=== PATIENT | female | born 1940 | race Caucasian/White ===

== ENCOUNTER → 2018-09-09 | Day surgery (SDC) | payer BC, MEDICARE ==
[2018-08-26 13:06] LABS: BASOPHILS # (AUTO) 0.1 (0.0-0.1); BASOPHILS % 0.6 % (0.0-1.0); EOSINOPHILS # (AUTO) 0.7 (0.0-0.4); EOSINOPHILS % 8.4 % (0.0-6.0); HEMATOCRIT 36.6 % (34.2-44.1); HEMOGLOBIN 11.8 g/dL (12.0-16.0); LYMPHOCYTES % 25.1 % (18.0-39.1); MEAN CORPUSCULAR HEMOGLOBIN 29.7 pg (28-32); MEAN CORPUSCULAR HGB CONC 32.2 g/dL (31-35); MEAN CORPUSCULAR VOLUME 92.2 fL (81-99); MONOCYTES # (AUTO) 0.9 (0.2-0.8); MONOCYTES % 11.6 % (4.4-11.3); NEUTROPHILS # (AUTO) 4.2 (2.1-6.9); NEUTROPHILS % 53.9 % (38.7-80.0); PLATELET COUNT 146 x10e3/uL (140-360); RED BLOOD COUNT 3.97 x10e6/uL (3.6-5.1); RED CELL DISTRIBUTION WIDTH 14.2 % (11.7-14.4)
[~2018-09-09] MED LIST: ALBUTEROL0.63 MG/3 INH; ASPIR 8181 MG PO; CENTRUM SILVER1 EAC1 PO; CLARITIN-D 241 EACH PO; CLARITIN10 MG PO; FUROSEMIDE40 MG PO; HYDROCHLOROTHIA25 MG PO; METOPROLOL TART50 MG PO; POTASSIUM CHLO10 ME1 PO; PROPOFOL IV EMULSION 10 MG/ML 20 ML VIAL ONE; SPIRIVA18 MCG INH; SYMBICORT 16010.2 GM INH
--- OUTSIDE RECORDS SUMMARY | 2018-09-09 05:41 | XMS REPORT | Clinical Summary ---
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 Last Filed Vital Signs Not on file Plan of Treatment Not on file Results Not on fileafter 09/08/2017 Insurance Payer Benefit Subscriber ID Type Phone Address Plan / Group BLUE CROSS/BLUE SHIELD - BCBS xxxxxxxxxxxx MEDICARE MGD CARE MEDICARE ADVANTAGE
--- OUTSIDE RECORDS SUMMARY | 2018-09-09 05:42 | XMS REPORT ---
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 Allergies, Adverse Reactions, Alerts Allergy Name Allergy Type Status Severity Reaction(s) Onset Date Inactive Date Treating Clinician Comments sulfamethoxazole DA Active U 2017-07-30 00:00:00 trimethoprim DA Active U 2017-07-30 00:00:00 Medications This patient has no known medications. Results Test Description Test Time Test Comments Text Results Atomic Results Result Comments - XR CHEST 2 V 2018-07-14 11:15:00 FAX: Cortez Marquez MD [phone] [place]: St: [facility] FAX: Lena Savage MD [phone] Name: DO JEFFERSON [facility] : 1940 Age/S: 77/F [address] [place] [address] Blvd Unit #: [id number] Loc: [place] [address] Phys: Lena Burgos MD Acct: [id number] Dis Date: Status: REG CLI PHONE #: [phone] Exam Date: 07/14/2018 1109 FAX #: [phone] Reason: J20.8, ACUTE BRONCHITIS DUE TO OTHER SPECIFIED EXAMS: CPT CODE: [id number] XR CHEST 2 V 35966 2 view chest x-ray performed July 14, 2018 1057 hours. COMPARISON: July 30, 2017. CLINICAL HISTORY: Acute bronchitis. DISCUSSION: 2 views/ films of the chest are submitted. Lungs are clear bilaterally. Size is normal. Atherosclerotic vascular calcifications are present.. Osseous structures are within normal limits. IMPRESSION: No acute cardiopulmonary findings. at 1115 Reported and signed by: Maggie Bruno M.D. CC: Cortez Curran MD; Lena Burgos MD Technologist: RT Vickie(Merlyn) Trnscrd Date/Time/By: 07/14/2018 (1117) : By: MagaliG Orig Print D/T: S: 07/14/2018 (7218) PAGE 1 Signed Report
[2018-09-09 08:45] VITALS: BP 93/59
== END | disposition home or self-care (01) ==
LOC: OR 05:34
PROVIDERS: ATTEND Internal Medicine Gastroenterology
DX: K63.5 Polyp of colon (principal); Z85.038 Personal history of other malignant neoplasm of large intestine; Z98.0 Intestinal bypass and anastomosis status; K64.9 Unspecified hemorrhoids; Z71.3 Dietary counseling and surveillance; I10 Essential (primary) hypertension; E66.9 Obesity, unspecified; J44.9 Chronic obstructive pulmonary disease, unspecified; Z88.1 Allergy status to other antibiotic agents; Z01.810 Encounter for preprocedural cardiovascular examination; Z01.812 Encounter for preprocedural laboratory examination; Z79.82 Long term (current) use of aspirin; Z68.34 Body mass index [BMI] 34.0-34.9, adult
CPT/HCPCS: 36415; 45378; 85025; 93005; J2704

== ENCOUNTER 2021-04-05 23:05 | Inpatient (IN) | payer MEDICARE ==
[~2021-04-05] VITALS: Ht 167.6 cm; Wt 97.5 kg
[~2021-04-05 23:05] MED LIST changes: -PROPOFOL IV EMULSION 10 MG/ML 20 ML VIAL ONE
[2021-04-05] MEDS ORDERED: ALBUTEROL/IPRATROPIUM 3 ML NEB ONE (23:29)
[2021-04-05] MEDS ORDERED: METHYLPREDNISOLONE SOD SUCC 125 MG/2ML VIAL ONE (23:36)
[2021-04-05] MEDS ORDERED: METHYLPREDNISOLONE SOD SUCC 125 MG/2ML VIAL IV ONE (23:45)
[2021-04-06] VITALS (8 sets, daily range): BP systolic 128–163; BP diastolic 58–97
[2021-04-06] MEDS ORDERED: ALBUTEROL SULF 0.083% NEB SOLN 3 ML NEB ONE (00:04)
[2021-04-06] MEDS ORDERED: ALBUTEROL SULF 0.083% NEB SOLN 3 ML NEB NEB STA ×2 (01:09)
[2021-04-06] MEDS ORDERED: SODIUM CHLORIDE FLUSH 10 ML SYR INJ PRN (01:15)
[2021-04-06] MEDS ORDERED: SODIUM CHLORIDE 0.9% 500ML 500 ML IV ONE (01:15)
[2021-04-06] MEDS ORDERED: ASPIRIN 81 MG CHEW TAB PO ONE (01:15)
[2021-04-06] MEDS ORDERED: ALBUTEROL/IPRATROPIUM 3 ML NEB NEB ONE ×2 (01:15)
[2021-04-06] MEDS: CEFTRIAXONE 2 GM in SODIUM CHLORIDE 0.9% 100 ML IV SCH ×2 (01:50→09:00)
[2021-04-06] MEDS ORDERED: SODIUM CHLORIDE 0.9% 100 ML ONE (01:51)
[2021-04-06] MEDS ORDERED: SODIUM CHLORIDE 0.9% 250ML 250 ML ONE ×2 (01:51→09:06)
[2021-04-06] MEDS ORDERED: SODIUM CHLORIDE 0.9% 500ML 500 ML ONE (01:51)
[2021-04-06] MEDS ORDERED: CEFTRIAXONE 1 GM VIAL ONE (01:52)
[2021-04-06] MEDS: ALBUTEROL SULF 0.083% NEB SOLN 3 ML NEB NEB SCH ×7 (04:00→22:00)
[2021-04-06] MEDS ORDERED: METHYLPREDNISOLONE SOD SUCC 125 MG/2ML VIAL IV SCH ×3 (06:00→21:00)
[2021-04-06] MEDS: IPRATROPIUM BROMIDE 0.02% 2.5 ML NEB NEB SCH ×3 (07:30→18:00)
[2021-04-06] MEDS ORDERED: HYDRALAZINE HCL 20 MG/ML VIAL IV PRN (09:30)
[2021-04-06] MEDS ORDERED: BENZONATATE 100 MG CAP PO PRN (09:30)
[2021-04-06] MEDS: GUAIFENESIN 600MG/DEXTROMETHORPHAN 30MG TABSR PO PRN (09:41)
[2021-04-06] MEDS: ALBUTEROL/IPRATROPIUM 3 ML NEB NEB SCH ×3 (11:20→20:20)
[2021-04-06 17:24] LABS: CREATINE KINASE 54 IU/L (29-168)
[2021-04-06] MEDS: METHYLPREDNISOLONE SOD SUCC 125 MG/2ML VIAL IV SCH (21:05)
[2021-04-07] MEDS: ALBUTEROL/IPRATROPIUM 3 ML NEB NEB SCH ×7 (00:55→22:29)
[2021-04-07] MEDS: ALBUTEROL SULF 0.083% NEB SOLN 3 ML NEB NEB SCH ×7 (01:00→22:00)
[2021-04-07] MEDS: IPRATROPIUM BROMIDE 0.02% 2.5 ML NEB NEB SCH ×4 (04:50→18:00)
[2021-04-07 06:41] VITALS: BP 125/103
[2021-04-07 07:51] VITALS: BP 153/81
[2021-04-07 08:07] LABS: BASOPHILS % 0.1 % (0.0-1.0); HEMATOCRIT 41.7 % (34.2-44.1); HEMOGLOBIN 13.1 g/dL (12.0-16.0); MEAN CORPUSCULAR HEMOGLOBIN 30.2 pg (28-32); MEAN CORPUSCULAR HGB CONC 31.4 g/dL (31-35); MEAN CORPUSCULAR VOLUME 96.1 fL (81-99); MONOCYTES # (AUTO) 0.9 (0.2-0.8); MONOCYTES % 6.6 % (4.4-11.3); NEUTROPHILS # (AUTO) 11.8 (2.1-6.9); NEUTROPHILS % 85.9 % (38.7-80.0); PLATELET COUNT 172 x10e3/uL (140-360); RED BLOOD COUNT 4.34 x10e6/uL (3.6-5.1); RED CELL DISTRIBUTION WIDTH 14.4 % (11.7-14.4)
[2021-04-07 08:27] LABS: ANION GAP 11.8 mmol/L (8-16); CALCIUM 9.7 mg/dL (8.4-10.2); CREATININE, SERUM 1.06 mg/dL (0.57-1.11); POTASSIUM 3.8 mmol/L (3.5-5.1)
[2021-04-07] MEDS: GUAIFENESIN 600MG/DEXTROMETHORPHAN 30MG TABSR PO PRN (08:30)
[2021-04-07] MEDS ORDERED: SODIUM CHLORIDE 0.9% 500ML 500 ML IV ONE (08:45)
[2021-04-07] MEDS ORDERED: METOPROLOL TARTRATE INJ 1 MG/ML VIAL IV ONE (08:45)
[2021-04-07 08:55] VITALS: BP 153/81
[2021-04-07 08:56] LABS: CREATINE KINASE MB 2.6 ng/mL (0-5.0)
[2021-04-07] MEDS: METHYLPREDNISOLONE SOD SUCC 125 MG/2ML VIAL IV SCH ×2 (09:00→20:41)
[2021-04-07] MEDS: CEFTRIAXONE 2 GM in SODIUM CHLORIDE 0.9% 100 ML IV SCH (09:00)
[2021-04-07] MEDS ORDERED: SODIUM CHLORIDE 0.9% 500ML 500 ML IV SCH (09:45)
[2021-04-07] MEDS: HYDROCHLOROTHIAZIDE 25 MG TAB PO SCH (10:15)
[2021-04-07] MEDS ORDERED: CHLORASEPTIC SPRAY 177 ML BTL MM PRN (10:15)
[2021-04-07] MEDS: ASPIRIN 81 MG ENTERIC COATED PO SCH (11:00)
[2021-04-07 11:53] VITALS: BP 151/85
[2021-04-07 15:50] VITALS: BP 131/79
[2021-04-07 20:00] VITALS: BP 159/84
[2021-04-07] MEDS ORDERED: METOPROLOL TARTRATE 25 MG TAB PO SCH (21:00)
[2021-04-08] VITALS (7 sets, daily range): BP systolic 133–167; BP diastolic 68–91
[2021-04-08] MEDS: ALBUTEROL/IPRATROPIUM 3 ML NEB NEB SCH ×5 (00:39→14:15)
[2021-04-08] MEDS: ALBUTEROL SULF 0.083% NEB SOLN 3 ML NEB NEB SCH ×3 (01:00→07:00)
[2021-04-08 04:43] LABS: BASOPHILS % 0.1 % (0.0-1.0); HEMATOCRIT 40.2 % (34.2-44.1); HEMOGLOBIN 12.4 g/dL (12.0-16.0); LYMPHOCYTES # (AUTO) 0.7 (1.0-3.2); LYMPHOCYTES % 7.3 % (18.0-39.1); MEAN CORPUSCULAR HEMOGLOBIN 30.5 pg (28-32); MEAN CORPUSCULAR HGB CONC 30.8 g/dL (31-35); MEAN CORPUSCULAR VOLUME 98.8 fL (81-99); MONOCYTES # (AUTO) 0.3 (0.2-0.8); NEUTROPHILS # (AUTO) 9.1 (2.1-6.9); NEUTROPHILS % 89.2 % (38.7-80.0); PLATELET COUNT 131 x10e3/uL (140-360); RED BLOOD COUNT 4.07 x10e6/uL (3.6-5.1); RED CELL DISTRIBUTION WIDTH 14.6 % (11.7-14.4)
[2021-04-08 05:03] LABS: ANION GAP 9.4 mmol/L (8-16); CALCIUM 9.4 mg/dL (8.4-10.2); CREATININE, SERUM 1.03 mg/dL (0.57-1.11); POTASSIUM 4.4 mmol/L (3.5-5.1)
[2021-04-08] MEDS: IPRATROPIUM BROMIDE 0.02% 2.5 ML NEB NEB SCH ×2 (06:00)
[2021-04-08] MEDS: CEFTRIAXONE 2 GM in SODIUM CHLORIDE 0.9% 100 ML IV SCH (08:56)
[2021-04-08] MEDS: ASPIRIN 81 MG ENTERIC COATED PO SCH (08:56)
[2021-04-08] MEDS: METHYLPREDNISOLONE SOD SUCC 125 MG/2ML VIAL IV SCH (08:56)
[2021-04-08] MEDS: HYDROCHLOROTHIAZIDE 25 MG TAB PO SCH (08:57)
[2021-04-08] MEDS ORDERED: ZITHROMAX500 MG PO (17:36)
[2021-04-08] MEDS ORDERED: PREDNISONE20 MG PO (17:38)
[2021-04-09] MEDS ORDERED: AZITHROMYCIN 250 MG TAB PO SCH (06:00)
== END 2021-04-08 18:20 | disposition home or self-care (01) | DRG 190 ==
LOC: FSED 23:10 → ERHOLD 04-06 01:02 → MED/SURG2 04-06 03:22
PROVIDERS: ADMIT Internal Medicine; ATTEND Internal Medicine
DX: J44.1 Chronic obstructive pulmonary disease with (acute) exacerbation (principal); J18.9 Pneumonia, unspecified organism; I10 Essential (primary) hypertension; J44.0 Chronic obstructive pulmonary disease with (acute) lower respiratory infection; E78.5 Hyperlipidemia, unspecified; I73.9 Peripheral vascular disease, unspecified; Z20.822 Contact with and (suspected) exposure to COVID-19; I48.0 Paroxysmal atrial fibrillation; I89.0 Lymphedema, not elsewhere classified; Z88.1 Allergy status to other antibiotic agents
CPT/HCPCS: 36415; 71045; 80048; 80053; 80061; 81003; 82550; 82553; 83880; 84484; 85025; 93005; 94640; 94799; 96374; 99284; J0456; J0696; J2930; J7040; J7050; U0002

== ENCOUNTER 2021-06-27 20:28 | Inpatient (IN) | payer MEDICARE ==
[~2021-06-27] VITALS: Ht 167.6 cm; Wt 97.5 kg
[~2021-06-27 20:28] MED LIST changes: +PREDNISONE20 MG PO; +ZITHROMAX500 MG PO
[2021-06-27] MEDS ORDERED: FUROSEMIDE INJ 10 MG/ML 4 ML VIAL IV STA (20:35)
[2021-06-27] MEDS ORDERED: ALBUTEROL/IPRATROPIUM 3 ML NEB NEB STA (20:49)
[2021-06-27 21:00] LABS: BASOPHILS # (AUTO) 0.1 (0.0-0.1); BASOPHILS % 0.8 % (0.0-1.0); EOSINOPHILS # (AUTO) 2.2 (0.0-0.4); EOSINOPHILS % 21.3 % (0.0-6.0); HEMATOCRIT 44.8 % (34.2-44.1); HEMOGLOBIN 14.4 g/dL (12.0-16.0); LYMPHOCYTES # (AUTO) 2.6 (1.0-3.2); LYMPHOCYTES % 24.6 % (18.0-39.1); MEAN CORPUSCULAR HEMOGLOBIN 30.6 pg (28-32); MEAN CORPUSCULAR HGB CONC 32.1 g/dL (31-35); MEAN CORPUSCULAR VOLUME 95.3 fL (81-99); MONOCYTES # (AUTO) 1.1 (0.2-0.8); MONOCYTES % 10.7 % (4.4-11.3); NEUTROPHILS # (AUTO) 4.4 (2.1-6.9); NEUTROPHILS % 42.4 % (38.7-80.0); PLATELET COUNT 169 x10e3/uL (140-360)
[2021-06-27 21:07] LABS: CLARITY,URINE HAZY (CLEAR); COLOR,URINE YELLOW (YELLOW); KETONES,URINE NEGATIVE (NEGATIVE); LEUKOCYTE ESTERASE ,URINE NEGATIVE (NEGATIVE); NITRITE,URINE NEGATIVE (NEGATIVE); PROTEIN,URINE DIPSTICK 1+ (NEGATIVE); URINE UROBILINOGEN 0.2 mg/dL (0.2 - 1)
[2021-06-27 21:12] LABS: RBC,URINE 0-5 /HPF (0-5)
[2021-06-27] MEDS ORDERED: TRELEGY ELLIPT1 EACH INH (21:14)
[2021-06-27 21:16] LABS: ALBUMIN 3.7 g/dL (3.5-5.0); ALBUMIN/GLOBULIN RATIO 0.9 (0.8-2.0); ANION GAP 13.3 mmol/L (8-16); CALCIUM 9.1 mg/dL (8.4-10.2); CREATININE, SERUM 0.87 mg/dL (0.57-1.11); POTASSIUM 4.3 mmol/L (3.5-5.1)
[2021-06-27 21:23] LABS: B-TYPE NATRIURETIC PEPTIDE2 99.8 pg/mL (0-100); CREATINE KINASE MB 1.8 ng/mL (0-5.0)
[2021-06-27] MEDS ORDERED: ONDANSETRON HCL INJ 2MG/ML 2ML 2 MG/ML VIAL IV STA (21:32)
[2021-06-27] MEDS ORDERED: SODIUM CHLORIDE FLUSH 10 ML SYR INJ PRN (22:00)
[2021-06-27] MEDS ORDERED: ASPIRIN 81 MG CHEW TAB PO ONE (22:00)
[2021-06-27] MEDS ORDERED: ALBUTEROL/IPRATROPIUM 3 ML NEB NEB PRN (22:00)
[2021-06-27 23:00] VITALS: BP 162/73
[2021-06-28] VITALS (8 sets, daily range): BP systolic 110–162; BP diastolic 69–107
[2021-06-28] MEDS: METHYLPREDNISOLONE SOD SUCC 40 MG/ML VIAL 1ML IV SCH ×4 (00:18→21:05)
[2021-06-28 05:00] LABS: BASOPHILS % 0.2 % (0.0-1.0); EOSINOPHILS % 0.4 % (0.0-6.0); HEMATOCRIT 42.9 % (34.2-44.1); HEMOGLOBIN 13.9 g/dL (12.0-16.0); LYMPHOCYTES # (AUTO) 0.8 (1.0-3.2); LYMPHOCYTES % 16.6 % (18.0-39.1); MEAN CORPUSCULAR HEMOGLOBIN 30.4 pg (28-32); MEAN CORPUSCULAR HGB CONC 32.4 g/dL (31-35); MEAN CORPUSCULAR VOLUME 93.9 fL (81-99); MONOCYTES # (AUTO) 0.1 (0.2-0.8); MONOCYTES % 1.3 % (4.4-11.3); NEUTROPHILS # (AUTO) 3.8 (2.1-6.9); NEUTROPHILS % 81.3 % (38.7-80.0); PLATELET COUNT 156 x10e3/uL (140-360); RED BLOOD COUNT 4.57 x10e6/uL (3.6-5.1); RED CELL DISTRIBUTION WIDTH 13.6 % (11.7-14.4)
[2021-06-28 05:16] LABS: ALBUMIN 3.3 g/dL (3.5-5.0); ALBUMIN/GLOBULIN RATIO 0.8 (0.8-2.0); ANION GAP 13.7 mmol/L (8-16); CALCIUM 9.1 mg/dL (8.4-10.2); CREATININE, SERUM 0.97 mg/dL (0.57-1.11); POTASSIUM 3.7 mmol/L (3.5-5.1)
[2021-06-28 06:06] LABS: CREATINE KINASE MB 3.4 ng/mL (0-5.0)
[2021-06-28] MEDS: FUROSEMIDE INJ 10 MG/ML 4 ML VIAL IV SCH ×2 (08:59→21:05)
[2021-06-28] MEDS ORDERED: ALBUTEROL SULF 0.083% NEB SOLN 3 ML NEB INH SCH (12:30)
[2021-06-28 15:20] LABS: CREATINE KINASE MB 2.7 ng/mL (0-5.0)
[2021-06-28] MEDS ORDERED: METOPROLOL TARTRATE 50 MG TAB PO SCH (21:00)
[2021-06-28] MEDS ORDERED: ASPIRIN 81 MG CHEW TAB PO SCH (21:00)
[2021-06-29] VITALS (9 sets, daily range): BP systolic 125–164; BP diastolic 50–98
[2021-06-29 06:39] LABS: BASOPHILS % 0.1 % (0.0-1.0); HEMATOCRIT 42.1 % (34.2-44.1); HEMOGLOBIN 13.9 g/dL (12.0-16.0); LYMPHOCYTES % 8.4 % (18.0-39.1); MEAN CORPUSCULAR HEMOGLOBIN 30.8 pg (28-32); MEAN CORPUSCULAR VOLUME 93.3 fL (81-99); MONOCYTES # (AUTO) 0.9 (0.2-0.8); MONOCYTES % 7.4 % (4.4-11.3); NEUTROPHILS # (AUTO) 10.4 (2.1-6.9); NEUTROPHILS % 83.4 % (38.7-80.0); PLATELET COUNT 147 x10e3/uL (140-360); RED BLOOD COUNT 4.51 x10e6/uL (3.6-5.1); RED CELL DISTRIBUTION WIDTH 13.9 % (11.7-14.4)
[2021-06-29 06:59] LABS: ALBUMIN/GLOBULIN RATIO 0.8 (0.8-2.0); ANION GAP 11.6 mmol/L (8-16); CALCIUM 9.2 mg/dL (8.4-10.2); CREATININE, SERUM 1.23 mg/dL (0.57-1.11); POTASSIUM 4.6 mmol/L (3.5-5.1)
[2021-06-29 07:34] LABS: CREATINE KINASE MB 2.1 ng/mL (0-5.0)
[2021-06-29] MEDS ORDERED: NON-FORMULARY MEDICATION (Fluticasone/Umeclidin/Vilanter (Trelegy Ellipta 100-62.5-25) 1 I INH SCH (09:00)
[2021-06-29] MEDS: FUROSEMIDE INJ 10 MG/ML 4 ML VIAL IV SCH (09:00)
[2021-06-29] MEDS: METHYLPREDNISOLONE SOD SUCC 40 MG/ML VIAL 1ML IV SCH (09:00)
[2021-06-29] MEDS ORDERED: PREDNISONE5 MG PO (16:22)
[2021-06-29] MEDS ORDERED: LASIX20 MG PO (16:28)
[2021-06-30] MEDS ORDERED: METHYLPREDNISOLONE SOD SUCC 40 MG/ML VIAL 1ML IV SCH (09:00)
== END 2021-06-29 17:52 | disposition home or self-care (01) | DRG 291 ==
LOC: ER 20:35 → ERHOLD 22:11 → MED/SURG2 22:38
PROVIDERS: ADMIT Family Medicine; ATTEND Family Medicine
DX: I11.0 Hypertensive heart disease with heart failure (principal); I50.33 Acute on chronic diastolic (congestive) heart failure; J44.1 Chronic obstructive pulmonary disease with (acute) exacerbation; I48.0 Paroxysmal atrial fibrillation; E78.5 Hyperlipidemia, unspecified; R09.02 Hypoxemia; E66.9 Obesity, unspecified; I89.0 Lymphedema, not elsewhere classified; Z68.34 Body mass index [BMI] 34.0-34.9, adult; Z88.2 Allergy status to sulfonamides; Z88.8 Allergy status to other drugs, medicaments and biological substances; Z20.822 Contact with and (suspected) exposure to COVID-19
CPT/HCPCS: 36415; 51700; 71045; 80053; 81001; 82550; 82553; 83605; 83880; 84484; 85025; 87040; 93005; 93306; 94640; 94799; 99251; 99285; J1940; J2405; J2920; U0002

== ENCOUNTER 2021-07-31 12:43 | Observation (INO) | payer MEDICARE ==
[~2021-07-31] VITALS: Ht 167.6 cm; Wt 92.5 kg
[~2021-07-31 12:43] MED LIST changes: +LASIX20 MG PO; +PREDNISONE5 MG PO; +TRELEGY ELLIPT1 EACH INH
[2021-07-31] MEDS ORDERED: FUROSEMIDE INJ 10 MG/ML 4 ML VIAL IV ONE (13:30)
[2021-07-31] MEDS ORDERED: ASPIRIN 325 MG TAB PO ONE (13:30)
[2021-07-31] MEDS ORDERED: METHYLPREDNISOLONE SOD SUCC 125 MG/2ML VIAL IV ONE (13:30)
[2021-07-31] MEDS ORDERED: ALBUTEROL/IPRATROPIUM 3 ML NEB NEB ONE (13:30)
[2021-07-31 13:41] LABS: BASOPHILS # (AUTO) 0.1 (0.0-0.1); BASOPHILS % 0.7 % (0.0-1.0); EOSINOPHILS % 13.7 % (0.0-6.0); HEMOGLOBIN 13.8 g/dL (12.0-16.0); LYMPHOCYTES # (AUTO) 1.8 (1.0-3.2); LYMPHOCYTES % 23.8 % (18.0-39.1); MEAN CORPUSCULAR HEMOGLOBIN 30.1 pg (28-32); MEAN CORPUSCULAR HGB CONC 31.4 g/dL (31-35); MEAN CORPUSCULAR VOLUME 96.1 fL (81-99); MONOCYTES # (AUTO) 0.8 (0.2-0.8); MONOCYTES % 11.2 % (4.4-11.3); NEUTROPHILS # (AUTO) 3.8 (2.1-6.9); NEUTROPHILS % 50.2 % (38.7-80.0); PLATELET COUNT 199 x10e3/uL (140-360); RED BLOOD COUNT 4.58 x10e6/uL (3.6-5.1); RED CELL DISTRIBUTION WIDTH 14.1 % (11.7-14.4)
[2021-07-31 13:59] LABS: INR 0.95; PROTHROMBIN TIME 13.6 seconds (11.9-14.5)
[2021-07-31 14:08] LABS: ALBUMIN 3.3 g/dL (3.5-5.0); ALBUMIN/GLOBULIN RATIO 0.8 (0.8-2.0); ANION GAP 11.3 mmol/L (8-16); CALCIUM 9.2 mg/dL (8.4-10.2); CREATININE, SERUM 1.11 mg/dL (0.57-1.11); POTASSIUM 3.3 mmol/L (3.5-5.1)
[2021-07-31] MEDS: DOXYCYCLINE HYCLATE TABLET 100 MG TAB PO SCH ×2 (15:27→20:19)
[2021-07-31 16:23] VITALS: BP 152/72
[2021-07-31] MEDS: ALBUTEROL/IPRATROPIUM 3 ML NEB NEB SCH ×2 (19:00→23:00)
[2021-07-31 19:43] VITALS: BP 152/72
[2021-07-31 20:00] VITALS: BP 140/83
[2021-07-31] MEDS ORDERED: ALBUTEROL SULF 0.083% NEB SOLN 3 ML NEB INH PRN (20:15)
[2021-07-31] MEDS ORDERED: SODIUM CHLORIDE 0.9% 250ML 0 ML ONE (20:17)
[2021-07-31 20:29] VITALS: BP 140/83
[2021-07-31 20:55] LABS: CREATINE KINASE MB 3.7 ng/mL (0-5.0)
[2021-07-31] MEDS ORDERED: ASPIRIN 81 MG CHEW TAB PO SCH (21:00)
[2021-07-31] MEDS: METHYLPREDNISOLONE SOD SUCC 125 MG/2ML VIAL IV SCH (21:03)
[2021-07-31] MEDS: METOPROLOL TARTRATE 50 MG TAB PO SCH (21:22)
[2021-08-01] VITALS (9 sets, daily range): BP systolic 125–161; BP diastolic 64–88
[2021-08-01] MEDS: ALBUTEROL/IPRATROPIUM 3 ML NEB NEB SCH (03:00)
[2021-08-01 06:01] LABS: BASOPHILS % 0.2 % (0.0-1.0); HEMATOCRIT 41.3 % (34.2-44.1); HEMOGLOBIN 13.3 g/dL (12.0-16.0); LYMPHOCYTES # (AUTO) 1.1 (1.0-3.2); LYMPHOCYTES % 19.7 % (18.0-39.1); MEAN CORPUSCULAR HEMOGLOBIN 30.4 pg (28-32); MEAN CORPUSCULAR HGB CONC 32.2 g/dL (31-35); MEAN CORPUSCULAR VOLUME 94.5 fL (81-99); MONOCYTES # (AUTO) 0.2 (0.2-0.8); MONOCYTES % 3.5 % (4.4-11.3); NEUTROPHILS # (AUTO) 4.4 (2.1-6.9); NEUTROPHILS % 75.9 % (38.7-80.0); PLATELET COUNT 161 x10e3/uL (140-360); RED BLOOD COUNT 4.37 x10e6/uL (3.6-5.1)
[2021-08-01 06:09] LABS: CREATININE, SERUM 0.95 mg/dL (0.57-1.11)
[2021-08-01] MEDS: METHYLPREDNISOLONE SOD SUCC 125 MG/2ML VIAL IV SCH ×2 (06:14→14:00)
[2021-08-01 06:44] LABS: CREATINE KINASE MB 3.2 ng/mL (0-5.0)
[2021-08-01] MEDS ORDERED: ALBUTEROL SULFATE HFA 8GM INHALATION AEROSOL INH SCH (07:00)
[2021-08-01] MEDS: ALBUTEROL SULFATE HFA 8GM INHALATION AEROSOL INH SCH ×4 (07:00→19:00)
[2021-08-01] MEDS: DOXYCYCLINE HYCLATE TABLET 100 MG TAB PO SCH ×2 (08:58→21:01)
[2021-08-01] MEDS: ASPIRIN 81 MG ENTERIC COATED PO SCH (08:58)
[2021-08-01] MEDS: FUROSEMIDE 20 MG TAB PO SCH (08:58)
[2021-08-01] MEDS: ENOXAPARIN SODIUM INJ 100 MG/ML SYR SC SCH ×2 (11:13→21:05)
[2021-08-01] MEDS ORDERED: METHYLPREDNISOLONE SOD SUCC 125 MG/2ML VIAL IV SCH (16:00)
[2021-08-01] MEDS ORDERED: ENOXAPARIN SOD INJ 40 MG/0.4 ML SYR SC SCH (17:00)
[2021-08-01] MEDS: METOPROLOL TARTRATE 50 MG TAB PO SCH (21:01)
[2021-08-02 04:00] VITALS: BP 158/72
[2021-08-02] MEDS: ALBUTEROL SULFATE HFA 8GM INHALATION AEROSOL INH SCH ×3 (07:00→15:00)
[2021-08-02 07:50] VITALS: BP 126/83
[2021-08-02 08:00] VITALS: BP 126/83
[2021-08-02] MEDS: ENOXAPARIN SODIUM INJ 100 MG/ML SYR SC SCH (08:35)
[2021-08-02] MEDS: FUROSEMIDE 20 MG TAB PO SCH (08:35)
[2021-08-02] MEDS: DOXYCYCLINE HYCLATE TABLET 100 MG TAB PO SCH (08:35)
[2021-08-02] MEDS: ASPIRIN 81 MG ENTERIC COATED PO SCH (08:35)
[2021-08-02 11:39] VITALS: BP 145/67
[2021-08-02 15:30] VITALS: BP 133/69
== END 2021-08-02 15:42 | disposition home or self-care (01) ==
LOC: ER 13:10 → ERHOLD 15:13 → MED/SURG3 15:47
PROVIDERS: ADMIT Internal Medicine; ATTEND Internal Medicine
DX: J44.1 Chronic obstructive pulmonary disease with (acute) exacerbation (principal); I11.0 Hypertensive heart disease with heart failure; I50.23 Acute on chronic systolic (congestive) heart failure; U07.1 COVID-19; Z91.14 Patient's other noncompliance with medication regimen; I24.8 Other forms of acute ischemic heart disease; I48.0 Paroxysmal atrial fibrillation; Z79.01 Long term (current) use of anticoagulants; E11.9 Type 2 diabetes mellitus without complications; E78.5 Hyperlipidemia, unspecified; Z90.49 Acquired absence of other specified parts of digestive tract; Z88.2 Allergy status to sulfonamides; Z88.8 Allergy status to other drugs, medicaments and biological substances; J96.21 Acute and chronic respiratory failure with hypoxia; I87.2 Venous insufficiency (chronic) (peripheral); Z79.899 Other long term (current) drug therapy
CPT/HCPCS: 36415 ×2; 71045; 80048; 80053; 82550 ×2; 82553 ×2; 83880; 84484 ×2; 85025 ×2; 85610; 93005; 93306; 94640; 94799 ×3; 99284; G0378 ×3; J1650 ×2; J2930 ×2; U0002; J7050

== ENCOUNTER 2021-09-01 15:58 | Emergency (ER) | payer MEDICARE ==
[~2021-09-01] VITALS: Ht 167.6 cm; Wt 92.5 kg
[2021-09-01] MEDS ORDERED: METHYLPREDNISOLONE SOD SUCC 125 MG/2ML VIAL IV ONE (16:15)
[2021-09-01 16:50] LABS: BASOPHILS # (AUTO) 0.1 (0.0-0.1); BASOPHILS % 0.6 % (0.0-1.0); EOSINOPHILS # (AUTO) 1.6 (0.0-0.4); EOSINOPHILS % 20.5 % (0.0-6.0); HEMATOCRIT 41.9 % (34.2-44.1); HEMOGLOBIN 13.3 g/dL (12.0-16.0); LYMPHOCYTES # (AUTO) 2.3 (1.0-3.2); MEAN CORPUSCULAR HEMOGLOBIN 30.3 pg (28-32); MEAN CORPUSCULAR HGB CONC 31.7 g/dL (31-35); MEAN CORPUSCULAR VOLUME 95.4 fL (81-99); MONOCYTES # (AUTO) 0.9 (0.2-0.8); MONOCYTES % 11.3 % (4.4-11.3); NEUTROPHILS # (AUTO) 2.9 (2.1-6.9); NEUTROPHILS % 37.3 % (38.7-80.0); PLATELET COUNT 191 x10e3/uL (140-360); RED BLOOD COUNT 4.39 x10e6/uL (3.6-5.1); RED CELL DISTRIBUTION WIDTH 14.5 % (11.7-14.4)
[2021-09-01 16:53] LABS: INR 0.89; PARTIAL THROMBOPLASTIN TIME 28.6 seconds (23.8-35.5); PROTHROMBIN TIME 12.9 seconds (11.9-14.5)
[2021-09-01 17:03] LABS: CLARITY,URINE CLEAR (CLEAR); COLOR,URINE YELLOW (YELLOW); KETONES,URINE NEGATIVE (NEGATIVE); LEUKOCYTE ESTERASE ,URINE NEGATIVE (NEGATIVE); NITRITE,URINE NEGATIVE (NEGATIVE); PROTEIN,URINE DIPSTICK NEGATIVE (NEGATIVE); URINE UROBILINOGEN 0.2 mg/dL (0.2 - 1)
[2021-09-01 17:07] LABS: ALANINE AMINOTRANSFERASE 13 IU/L (0-55); ALBUMIN 3.2 g/dL (3.5-5.0); ALKALINE PHOSPHATASE 94 IU/L (40-150); ANION GAP 15.4 mmol/L (8-16); BLOOD UREA NITROGEN 16 mg/dL (7-26); BUN/CREATININE RATIO 18 (6-25); CALCIUM 9.1 mg/dL (8.4-10.2); CARBON DIOXIDE 25 mmol/L (22-29); CHLORIDE 107 mmol/L (98-107); CREATINE KINASE 55 IU/L (29-168); CREATININE, SERUM 0.89 mg/dL (0.57-1.11); GLUCOSE 91 mg/dL (74-118); MAGNESIUM 1.8 MG/DL (1.3-2.1); POTASSIUM 3.4 mmol/L (3.5-5.1); SODIUM 144 mmol/L (136-145)
[2021-09-01 17:12] LABS: BACTERIA,URINE RARE /HPF; EPITHELIAL CELLS,URINE MODERATE /LPF; WBC,URINE (MAN) 0-5 /HPF (0-5)
[2021-09-01 17:16] LABS: B-TYPE NATRIURETIC PEPTIDE2 156.6 pg/mL (0-100)
[2021-09-01] MEDS ORDERED: ALBUTEROL/IPRATROPIUM 3 ML NEB NEB ONE (18:15)
[2021-09-01] MEDS ORDERED: PREDNISONE20 MG PO (19:30)
== END 2021-09-01 19:44 | disposition home or self-care (01) ==
LOC: ER 16:05
DX: J44.1 Chronic obstructive pulmonary disease with (acute) exacerbation (principal); R06.02 Shortness of breath; I50.9 Heart failure, unspecified; Z20.822 Contact with and (suspected) exposure to COVID-19
CPT/HCPCS: 36415; 71045; 80053; 81001; 82550; 82553; 83605; 83735; 83880; 84484; 85025; 85610; 85730; 87040; 87086; 93005; 94640; 94799; 99284; J2930; U0002

== ENCOUNTER 2021-09-18 22:07 | Inpatient (IN) | payer MEDICARE ==
[~2021-09-18] VITALS: Ht 167.6 cm; Wt 87.5 kg
[2021-09-18] MEDS ORDERED: METHYLPREDNISOLONE SOD SUCC 125 MG/2ML VIAL ONE (22:28)
[2021-09-18] MEDS ORDERED: METHYLPREDNISOLONE SOD SUCC 125 MG/2ML VIAL IV ONE (22:30)
[2021-09-18] MEDS ORDERED: ALBUTEROL/IPRATROPIUM 3 ML NEB ONE (22:32)
[2021-09-18 22:39] LABS: BASOPHILS # (AUTO) 0.1 (0.0-0.1); BASOPHILS % 0.6 % (0.0-1.0); EOSINOPHILS # (AUTO) 1.8 (0.0-0.4); EOSINOPHILS % 19.6 % (0.0-6.0); HEMATOCRIT 44.6 % (34.2-44.1); HEMOGLOBIN 13.9 g/dL (12.0-16.0); LYMPHOCYTES # (AUTO) 1.4 (1.0-3.2); LYMPHOCYTES % 15.5 % (18.0-39.1); MEAN CORPUSCULAR HEMOGLOBIN 30.3 pg (28-32); MEAN CORPUSCULAR HGB CONC 31.2 g/dL (31-35); MEAN CORPUSCULAR VOLUME 97.2 fL (81-99); MONOCYTES # (AUTO) 1.1 (0.2-0.8); MONOCYTES % 11.7 % (4.4-11.3); NEUTROPHILS # (AUTO) 4.9 (2.1-6.9); NEUTROPHILS % 52.5 % (38.7-80.0); PLATELET COUNT 159 x10e3/uL (140-360); RED BLOOD COUNT 4.59 x10e6/uL (3.6-5.1); RED CELL DISTRIBUTION WIDTH 14.8 % (11.7-14.4)
[2021-09-18 22:57] LABS: ALANINE AMINOTRANSFERASE 22 IU/L (0-55); ALBUMIN 3.4 g/dL (3.5-5.0); ALBUMIN/GLOBULIN RATIO 0.8 (0.8-2.0); ALKALINE PHOSPHATASE 98 IU/L (40-150); ANION GAP 16.2 mmol/L (8-16); BLOOD UREA NITROGEN 18 mg/dL (7-26); BUN/CREATININE RATIO 17 (6-25); CALCIUM 9.7 mg/dL (8.4-10.2); CARBON DIOXIDE 27 mmol/L (22-29); CHLORIDE 105 mmol/L (98-107); CREATINE KINASE 46 IU/L (29-168); CREATININE, SERUM 1.05 mg/dL (0.57-1.11); GLUCOSE 108 mg/dL (74-118); POTASSIUM 4.2 mmol/L (3.5-5.1); SODIUM 144 mmol/L (136-145)
[2021-09-18] MEDS ORDERED: ALBUTEROL/IPRATROPIUM 3 ML NEB NEB STA (23:11)
[2021-09-18] MEDS ORDERED: ONDANSETRON HCL INJ 2MG/ML 2ML 2 MG/ML VIAL IV PRN (23:30)
[2021-09-18] MEDS ORDERED: SODIUM CHLORIDE FLUSH 10 ML SYR INJ PRN (23:30)
[2021-09-18] MEDS ORDERED: Morphine 2mg Syringe 2 MG/ML SYR IV PRN (23:30)
[2021-09-18] MEDS: FUROSEMIDE INJ 10 MG/ML 4 ML VIAL IV SCH (23:40)
[2021-09-19] VITALS (9 sets, daily range): BP systolic 136–153; BP diastolic 70–88
[2021-09-19] MEDS ORDERED: POLYETHYLENE GLYCOL 3350 17 GM PACK PO PRN (00:30)
[2021-09-19] MEDS ORDERED: METOPROLOL TARTRATE INJ 1 MG/ML VIAL IV PRN (00:30)
[2021-09-19] MEDS ORDERED: ACETAMINOPHEN 325 MG TAB PO PRN (00:30)
[2021-09-19] MEDS ORDERED: IPRAT-ALBUT 0.5-3 ML INH (01:31)
[2021-09-19] MEDS ORDERED: ALBUTEROL 90 MCG INH (01:31)
[2021-09-19] MEDS: METHYLPREDNISOLONE SOD SUCC 40 MG/ML VIAL 1ML IV SCH ×3 (04:00→21:34)
[2021-09-19] MEDS ORDERED: SODIUM CHLORIDE 0.9% 250ML 250 ML ONE (06:34)
[2021-09-19 06:59] LABS: BASOPHILS % 0.2 % (0.0-1.0); EOSINOPHILS % 0.2 % (0.0-6.0); LYMPHOCYTES # (AUTO) 0.6 (1.0-3.2); LYMPHOCYTES % 10.5 % (18.0-39.1); MEAN CORPUSCULAR HEMOGLOBIN 29.6 pg (28-32); MEAN CORPUSCULAR VOLUME 95.7 fL (81-99); MONOCYTES # (AUTO) 0.1 (0.2-0.8); NEUTROPHILS # (AUTO) 4.6 (2.1-6.9); NEUTROPHILS % 87.7 % (38.7-80.0); PLATELET COUNT 140 x10e3/uL (140-360); RED BLOOD COUNT 4.39 x10e6/uL (3.6-5.1); RED CELL DISTRIBUTION WIDTH 14.7 % (11.7-14.4)
[2021-09-19] MEDS ORDERED: FAMOTIDINE 20 MG TAB PO SCH (07:30)
[2021-09-19 07:33] LABS: ALBUMIN 3.2 g/dL (3.5-5.0); ALBUMIN/GLOBULIN RATIO 0.9 (0.8-2.0); ANION GAP 14.7 mmol/L (8-16); CALCIUM 9.2 mg/dL (8.4-10.2); CREATININE, SERUM 1.11 mg/dL (0.57-1.11); POTASSIUM 3.7 mmol/L (3.5-5.1)
[2021-09-19 07:56] LABS: CREATINE KINASE 40 IU/L (29-168)
[2021-09-19] MEDS: FUROSEMIDE INJ 10 MG/ML 4 ML VIAL IV SCH (08:20)
[2021-09-19] MEDS: DOCUSATE SODIUM 100 MG CAP PO SCH ×2 (08:23→16:31)
[2021-09-19] MEDS: FAMOTIDINE 20 MG TAB PO SCH (08:23)
[2021-09-19 08:29] LABS: CHOL/HDL RATIO 2.5 (3.0-3.6); MAGNESIUM 1.8 MG/DL (1.3-2.1); PHOSPHORUS 3.6 MG/DL (2.3-4.7)
[2021-09-19 08:49] LABS: THYROID STIMULATING HORMONE 1.479 uIU/mL (0.350-4.940)
[2021-09-19 16:04] LABS: CREATINE KINASE 35 IU/L (29-168)
[2021-09-19 18:47] LABS: CALCIUM 9.9 mg/dL (8.4-10.2); CREATININE, SERUM 1.72 mg/dL (0.57-1.11); PHOSPHORUS 2.9 MG/DL (2.3-4.7)
[2021-09-19 19:03] LABS: CREATINE KINASE 38 IU/L (29-168)
[2021-09-19] MEDS ORDERED: ASPIRIN 81 MG CHEW TAB PO SCH (21:00)
[2021-09-20] VITALS: BP 137/78
[2021-09-20 05:25] VITALS: BP 139/73
[2021-09-20] MEDS ORDERED: NON-FORMULARY MEDICATION (Fluticasone/Umeclidin/Vilanter (Trelegy Ellipta 100-62.5-25) 1 I INH SCH (06:00)
[2021-09-20 07:15] LABS: ANION GAP 16.3 mmol/L (8-16); CALCIUM 8.6 mg/dL (8.4-10.2); CREATININE, SERUM 1.48 mg/dL (0.57-1.11); MAGNESIUM 2.1 MG/DL (1.3-2.1); PHOSPHORUS 3.2 MG/DL (2.3-4.7); POTASSIUM 4.3 mmol/L (3.5-5.1)
[2021-09-20 07:43] VITALS: BP 138/74
[2021-09-20] MEDS: DOCUSATE SODIUM 100 MG CAP PO SCH (08:24)
[2021-09-20] MEDS: FAMOTIDINE 20 MG TAB PO SCH (08:24)
[2021-09-20] MEDS: METHYLPREDNISOLONE SOD SUCC 40 MG/ML VIAL 1ML IV SCH (08:24)
[2021-09-20] MEDS ORDERED: FUROSEMIDE INJ 10 MG/ML 4 ML VIAL IV SCH (09:00)
[2021-09-20] MEDS ORDERED: FAMOTIDINE20 MG PO (11:33)
[2021-09-20] MEDS ORDERED: AZITHROMYCIN250 MG PO (11:33)
[2021-09-20] MEDS ORDERED: LASIX40 MG PO (11:33)
[2021-09-20] MEDS ORDERED: PREDNISONE20 MG PO (11:33)
[2021-09-20 11:45] VITALS: BP 153/81
[2021-09-20] MEDS ORDERED: ONDANSETRON HCL 4 MG ORAL DISINTEGRATING TAB PO PRN (13:30)
[2021-09-21] MEDS ORDERED: FUROSEMIDE 40 MG TAB PO SCH (09:00)
== END 2021-09-20 14:28 | disposition home or self-care (01) | DRG 191 ==
LOC: ER 22:16 → ERHOLD 23:29 → MED/SURG2 09-19 00:18
PROVIDERS: ADMIT Internal Medicine; ATTEND Internal Medicine
DX: J44.1 Chronic obstructive pulmonary disease with (acute) exacerbation (principal); I50.32 Chronic diastolic (congestive) heart failure; I11.0 Hypertensive heart disease with heart failure; I89.0 Lymphedema, not elsewhere classified; I87.2 Venous insufficiency (chronic) (peripheral); E78.5 Hyperlipidemia, unspecified; I48.0 Paroxysmal atrial fibrillation; Z79.01 Long term (current) use of anticoagulants; Z86.16 Personal history of COVID-19; E66.9 Obesity, unspecified; Z68.31 Body mass index [BMI] 31.0-31.9, adult; I16.0 Hypertensive urgency; E87.8 Other disorders of electrolyte and fluid balance, not elsewhere classified; R25.2 Cramp and spasm; Z20.822 Contact with and (suspected) exposure to COVID-19; Z79.82 Long term (current) use of aspirin; Z79.899 Other long term (current) drug therapy; R60.0 Localized edema
CPT/HCPCS: 36415; 71045; 80048; 80053; 80061; 82550; 82553; 83036; 83605; 83735; 83880; 84100; 84443; 84484; 85025; 87040; 93005; 94799; 99284; J1940; J2543; J2920; J2930; J7050